=== PATIENT | male | born 1980 | race Caucasian/White ===

== ENCOUNTER 2023-06-15 11:10 | Outpatient (OUT) | payer BC, SELFPAY ==
--- NOTE | 2023-06-15 11:25 | XR_ITS ---
The [address] [address] Patient Name: JOCE MCKNIGHT MRN: [id number] date: 1980 Sex: M Assigned Patient Location: RAD Current Patient Location: RAD Accession/Order Number: [id number] Exam Date: 06/15/2023 11:30 Report Date: 06/15/2023 14:28 At the request of: CHAUNCEY GRIGGS Procedure: XR chest 2V EXAM: XR chest 2V HISTORY: Encounter For General Adult Examination Z00.00 COMPARISON: None. TECHNIQUE: Upright PA and lateral chest x-ray FINDINGS: The heart is not enlarged and the vasculature is not distended. No acute infiltrate, effusion or pneumothorax is identified. The osseous structures are grossly intact. Arm positioning limits the study. XR/XR chest 2V IMPRESSION: No acute infiltrate or evidence of cardiac decompensation. Direct comparison with a previous study may be helpful in confirming the chronicity is findings. The patient had CT scan of the chest performed 11/05/2021 which reported scattered small pulmonary nodules, which are not visualized in the current study. Electronically authenticated by: YOMI OLSEN Date: 06/15/2023 14:28
== END 2023-06-15 11:11 | disposition home or self-care (01) ==
PROVIDERS: PCP Family Medicine; Visit Provider Family Medicine
DX: Z00.00 Encounter for general adult medical examination without abnormal findings (principal)
CPT/HCPCS: 71046

== ENCOUNTER 2023-06-16 09:13 | Outpatient (OUT) | payer BC, SELFPAY ==
[2023-06-16 09:33] LABS: Basophils Percent Auto 0.5 % (0.2-2.0); Eosinophils Absolute Auto 0.2 10^3/uL (0.0-0.7); Eosinophils Percent Auto 2.8 % (0.9-7.0); Hematocrit 49.1 % (42.0-54.0); Hemoglobin 16.4 g/dL (14.0-18.0); Immature Granulocytes Abs Auto 0.02 10^3/uL (0.00-0.03); Immature Granulocytes Pct Auto 0.3 % (0.0-0.5); Lymphocytes Percent Auto 32.7 % (20.5-60.0); Mean Corpuscular HGB Conc 33.4 g/dL (29.9-35.2); Mean Corpuscular Hemoglobin 30.5 pg (25.9-34.0); Mean Corpuscular Volume 91.4 fL (80.0-94.0); Mean Platelet Volume 10.6 fL (9.5-13.5); Monocytes Absolute Auto 0.5 10^3/uL (0.3-0.8); Monocytes Percent Auto 8.4 % (1.7-12.0); Neutrophils Absolute Auto 3.3 10^3/uL (1.4-6.5); Neutrophils Percent Auto 55.3 % (43.0-75.0); Platelet Count 197 10^3/uL (150-450); Red Blood Count 5.37 10^6/uL (4.70-6.10); Red Cell Distribution Width 12.3 % (11.0-15.0); White Blood Count 6.1 10^3/uL (4.0-11.0)
[2023-06-16 10:10] LABS: Alanine Aminotransferase 41 U/L (16-63); Albumin Globulin Ratio 1.4; Albumin Level 3.9 g/dL (3.4-5.0); Alkaline Phosphatase 94 U/L (46-116); Anion Gap 10.5; Aspartate Amino Transferase 20 U/L (15-37); BUN Creatinine Ratio 16.1; Bilirubin Total 0.4 mg/dL (0.2-1.0); Calcium 8.8 mg/dL (8.5-10.1); Carbon Dioxide 28.1 mmol/L (21.0-32.0); Chloride 106 mmol/L (98-107); Chol HDL Ratio 4.2; Cholesterol 176 mg/dL (<=200); Estimated GFR (African America >60 (>=60); Estimated GFR (Non-African Ame >60 (>=60); Globulin 2.8 g/dL; Glucose 95 mg/dL (74-106); HDL Cholesterol 42 mg/dL (40-60); LDL Cholesterol Calculated 122.4 mg/dL; Potassium 4.6 mmol/L (3.5-5.1); Sodium 140 mmol/L (136-145); Thyroid Stimulating Hormone 1.475 uIU/mL (0.358-3.740); Total Protein 6.7 g/dL (6.4-8.2); Triglycerides 58 mg/dL (<=150); VLDL CHOLESTEROL 11.6 mg/dL
[2023-06-16 10:13] LABS: Estimated Average Glucose 105 mg/dL; Glycohemoglobin A1C 5.3 % (4.5-6.2)
[2023-06-16 10:51] LABS: Free T4 0.88 ng/dL (0.76-1.46)
[2023-06-16 11:00] LABS: Prostate Specific Antigen Scrn 0.75 ng/mL (<=4.00)
[2023-06-17 11:08] LABS: Insulin 9.8 uIU/mL (2.6-24.9)
== END 2023-06-16 09:14 | disposition home or self-care (01) ==
LOC: LAB 09:13
PROVIDERS: PCP Family Medicine; Visit Provider Family Medicine
DX: Z00.00 Encounter for general adult medical examination without abnormal findings (principal); R73.09 Other abnormal glucose; E78.5 Hyperlipidemia, unspecified; Z12.5 Encounter for screening for malignant neoplasm of prostate; Z12.12 Encounter for screening for malignant neoplasm of rectum
CPT/HCPCS: 36415; 80053; 80061; 83036; 83525; 84436; 84439; 84443; 85025; G0103

== ENCOUNTER 2023-07-18 15:54 | Outpatient (REF) | payer BC, SELFPAY ==
--- OUTSIDE RECORDS SUMMARY | 2023-07-18 16:05 | XMS_ITS | CCD ---
Author Name Unknown Address [address] [place] [address] Organization [facility] Care Team Providers Care Retail Financial Analyst Name Role Phone SAMEER MENDOZA Unavailable Unavailable CHAUNCEY HUDDLESTON Unavailable Unavailable SAMEER MENDOZA Unavailable Unavailable SAMEER MENDOZA Unavailable Unavailable AUBREE MADRIGAL Attending Unavailable WI Procedure Practitioner Unavailab AUBREE Pond Surgeon Unavailable MEDHAT MADRIGALSEZHENG Lane Admitting Unavailable CHAUNCEY HUDDLESTON Primary Care Unavailable CHAUNCEY HUDDLESTON Referring Unavailable JOE WATT Surgeon Unavailable WI Procedure Practitioner Unavailab DR CHAUNCEY Hernandez Attending Unavailable DR CHAUNCEY HUDDLESTON Consulting Unavailable DR CHAUNCEY HUDDLESTON Primary Care Unavailable DR CHAUNCEY HUDDLESTON Admitting Unavailable LEONARDO, DR SULMA Pedraza Consulting Unavailable AUBREE MADRIGAL Attending Unavailable AUBREE MADRIGAL Attending Unavailable ERIN OLIVA Attending Unavailable Allergies Allergy Classification Reported Allergen(s) Allergy Type Date of Onset Reaction(s) Facility (1 source) Milk; Translations: [MILK] Propensity to adverse reactions to drug (disorder) 8 [facility] Repository Problems Problem Classification Problem Date Documented Date Episodic/Chronic Other lower respiratory disease (4 sources) Other disorders of lung; Translations: [OTHER DISORDERS OF LUNG] Onset: 11-05-2021 Episodic Spondylosis; intervertebral disc disorders; other back problems (2 sources) Other intervertebral disc degeneration, lumbar region; Translations: [Other intervertebral disc degeneration, lumbar region] Onset: 07-28-2022 Chronic Sprains and strains (1 source) Strain of unspecified muscle, fascia and tendon at shoulder and upper arm level, right arm, initial encounter; Translations: [Strain of unspecified muscle, fascia and tendon at shoulder and upper arm level, right arm, initial encounter] Onset: 07-06-2023 Episodic Results Test Name Value Interpretation Reference Range Facility XR ELBOW RIGHT (MIN 3 VIEWS) on 07-06-2023 XR ELBOW RIGHT (MIN 3 VIEWS) CLINICAL HISTORY: Right elbow pain. RIGHT ELBOW 3 VIEWS: No fracture, malalignment, significant arthritis or other acute bony abnormality is seen. No elbow joint effusion seen. IMPRESSION: Normal exam. Interpreted by: Mason Agarwal MD Signed by: Mason Agarwal MD 07/06/23 Final result Normal [facility] Follow-Upon 08-25-2022 Follow-Up [id number] UlicesAndoh ew 1980 M Date Provider Department Center 08/25/2022 [id number], AUBREE [facility] No family history on file Level of Service:61479 [place] OFFICE/OUTPATIENT ESTABLISHED LOW MDM 20-[address] [facility] Office Visiton 07-28-2022 Follow-up visit [id number] Escobar Elena ew 1980 M Date Provider Department Center 07/28/2022 [id number], AUBREE [facility] No family history on file Level of Service:33088 [place] OFFICE/OUTPATIENT NEW MODERATE MDM 45-[address] [facility] CT CHEST W CONon 11-06-2021 CT CHEST W CON EXAMINATION: CT CHES T W CON HISTORY: Disorder of lung follow-up lung nodules COMPARISON: 10/30/20, 12/31/2019 TECHNIQUE: Multi-planar CT images were created with IV contrast. Axial, Coronal, and Sagittal images. Dose reduction techniques were achieved by using automated exposure control and/or adjustment of mA and/or kV according to patient size and/or use of iterative reconstruction technique. FINDINGS: LUNGS: Scattered pulmonary nodules the largest cluster of pulmonary nodules is identified in the left lower lobe with the largest single nodule measuring 5.6 mm on axial image 57. These nodules are stable in number and size from the prior exam. No new pulmonary nodule or mass is identified. Minimal dependent atelectasis. PLEURA: No mass, effusion, or pneumothorax. VASCULATURE: No abnormality. JOSE: Single enlarged left hilar lymph node calcifications measuring 1.6 cm axial image 49, stable. No new pathologic adenopathy MEDIASTINUM: Small amount of soft tissue attenuation in the anterior mediastinum, residual thymic tissue is favored CARDIAC: No enlargement, pericardial thickening, or significant calcification. AORTA: No aneurysm or dissection. CHEST WALL: No mass or axillary adenopathy. BONES: Table chronic left scapular fracture with incomplete union LIMITED ABDOMEN: No suspicious findings. Limited images of the upper abdomen. OTHER: Negative. IMPRESSION: Stable scattered pulmonary nodules. Given the stability over the course of 2 years likely benign Electronically authenticated by: SULMA PATTERSON Date: 2021-11-06 10:44 Normal [facility] LUMBAR SPINE 2 OR 3 [facility] LUMBAR SPINE [address] [facility] Department of Radiology [address] [place] [id number] ====== Patient Name: JOCE ELENA : 1980 Sex: M Age: Race: White Pt. Location: OUTP Patient Status: O Ordered Date: 05/11/2020 7:15:00 AM Completed Date: 05/11/2020 09:37 AM Requesting Provider: AUBREE MADRIGAL Attending Provider: AUBREE MADRIGAL Report Copy To: Signs & Symptoms: Left L4-5 Microdiscectomy with History: Comments: Left L4-5 Microdiscectomy with Exam: LUMBAR SPINE 2 OR 3 S ====== LUMBAR SPINE 2 OR 3 S 05/11/2020 9:37 AM CLINICAL INDICATIONS: Left L4-5 Microdiscectomy with TECHNOLOGIST COMMENTS: Intra op left L4-5 Microdiscectomy with , 8 sec of fluoro used QUESTION FOR RADIOLOGIST: Left L4-5 Microdiscectomy with PROTOCOL: AP, Lateral and L5-S1 spot film was obtained. COMPARISON: 04/15/2020 IMPRESSION: Retractor posterior to L4 is appreciated. Probe projects into the L4-5 disc space. Fluoroscopy time is 8.8 seconds. 4 images are cemented for review. Please refer any questions or concerns related to the procedure to the performing service Electronically signed: Carmen Rivas. Transcribed by: [email or web address], User Resident: Electronically Signed by: CARMEN RIVAS @ 05/11/2020 01:[address] [facility] Comment on above: Order Comment: Left L4-5 Microdiscectomy with Operative Reporton 0 Operative Report MR#: [id number] [facility] Pt. Name: Joce Elena Room #: 0C Discharge Date: Birthdate: 1980 OPERATIVE REPORT DATE OF SURGERY: 05/11/2020 SURGEON: Aubree Madrigal M.D. COMPUTER SYSTEMS DESIGN ANALYST:Michael Kline M.D. 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 ANESTHESIA: General endotracheal anesthesia prone position on Catalino table. SURGICAL PROCEDURE: 1. L4-5 left laminotomy and microdiskectomy (46371). 2. Use of intraoperative microscope (03272). POSTOPERATIVE DIAGNOSES: L4-5 disk prolapse with left side L5 radiculopathy (ICD 10M99.53, M54.16). ESTIMATED BLOOD LOSS: 50 mL. FLUIDS GIVEN: 1200 mL. COMPLICATIONS: None. COUNTS: Needle, sponge, and instrument correct at the end of the surgical procedure. DISPOSITION: The patient was transferred to the recovery room, extubated in stable condition. INDICATIONS: Mr. Elena is 39 year-old patient who was seen in the clinic with a chief complaint of radicular pain in left lower extremity in the distribution of the L5 nerve root dermatome. MRI scan has confirmed L4-5 posterolateral disk prolapse, compressing left traversing L5 nerve root. Due to severity of symptoms affecting daily activities and failure of conservative treatments, including physical therapy, modification of activities, and multiple spine injections, the patient was keen on the on the above-mentioned surgical procedure We explained to the patient the risks and benefits of the above-mentioned surgical procedure, which includes, but not limited to, intraoperative complications from anesthesia, including , intraoperative bleeding that may require blood transfusion, intraabdominal organs that may require exploration and repair. Postoperative complications, include but not limited to, blindness, infection, DVT/PE, incomplete relief of symptoms, recurrence of symptoms, and requirement of further surgery at the same or adjacent segment. The patient fully understands the risks and benefits of the above-mentioned surgical procedure and signed the consent for surgery, as well as blood transfusion. The patient had been cleared for surgery by her family doctor and also has been seen in preoperative clinic at the [facility]. PROCEDURE: The patient was brought to the operating room today, positively identified, received a smooth general endotracheal intubation and received IV antibiotic for surgical prophylaxis. Thigh-high Gerard stockings, as well as sequential compression devices used for DVT prophylaxis. The patient was then rolled into a Philip frame on a flat Catalino table. The Philip frame was elevated, and the patient was placed in reverse Trendelenburg position. Care was taken to ensure all bony prominences were carefully padded. The C-arm was then brought into AP and lateral position and marked level of skin incision centered over the L4-5 disk space. The skin was then prepped and draped in the usual manner. The intended area of skin incision was then infiltrated with 10 mL of 0.5 Marcaine with epinephrine. A midline linked skin incision centered over L4-5 disk space was performed. The subcutaneous tissue was incised in line of the skin incision. A left -sided sub-periosteal exposure was then performed exposing the left L4-5 interlaminar space. After confirmation of correct level of surgery with fluoroscopy, a small laminotomy including the caudal aspect of the L4 lamina, as well as cephalad aspect of L5 lamina were performed using the high-speed Midas Michael, as well as #3 Kerrison rongeur. At this stage, the surgical microscope was then brought into the surgical field, and the plane between the epidural fat and the ligament flavum was identified and ligament flavum was excised. The L5 nerve root was identified and was noted to be quite swollen and inflamed. The nerve root was then retracted medially with nerve root retractor. A large underlying disk herniation was identified. Bipolar electrocautery was then used to coagulate the epidural vessels. Annulotomy was then performed with a #15 blade. This resulted into a large disk fragment coming out through the annulotomy and was removed using a pituitary rongeur. Small additional free disk fragments were identified and removed. A down-biting curette was then used to dissect slightly more medially and slightly more laterally, and any additional free disk fragments were removed. The disk space was then irrigated with normal saline and Bacitracin and any additional free disk fragment were removed. At this point, the foot was allowed to return to its iqugmiut position and was noted to be completely free of any compression or underlying tension and was easily mobile. A Rashaad elevator was then used to palpate along the anterior aspect of the L5 nerve root, as well as the dura with no additional obstruction or compression noted. Final image intensifier was then performed to confirm correct level of surgery before closure. With bone dry hemostasis and no CSF leak, we proceeded with closure. #0 Vicryl was used for closure of the deep fascia and muscle. #2-0 Vicryl used for closure of subcutaneous tissue. #3-0 Biosyn used for subcuticular closure. Octylseal was applied to the skin. The patient was then gently rolled into a bed and was extubated and returned to the recovery room in stable condition. The patient tolerated the procedure well. There was no immediate complication. I was present for the entire surgical procedure. POSTOPERATIVE PLAN: The patient will be going home later today and will be instructed to avoid prolonged sitting more than 1/2 hour at a time, as well as heavy lifting. Follow-up in the clinic in 2 weeks. @ Electronically Signed by: Aubree Madrigal M.D. 05/11/2020 09:36 A __ Aubree Madrigal M.D. Date Dict: 05/11/2020/09:33 Renny/Aubree Madrigal M.D. Date Trans: 05/11/2020 09:33 A/ MIHAELA_JN:[id number] cc: Chauncey Huddleston M.D. [address] [place] [address] [facility] POC GLUCOSE LABon 05-11-2020 Glucose [Mass/Vol] 90 mg/dL Normal 70-[address] [facility] Comment on above: Performed By: #### [id number] #### [facility] [address] [facility]. [address] *SARS-CoV-2 COVID-19on 05-08 [id number] Not Detected Normal Not Detected [facility] Comment on above: Order Comment: The Aptima SARS-CoV-2 ass ay is a nucleic acid amplification test intended for the qualitative detection of RNA from SARS-CoV-2 isolated and purified from nasopharyngeal (MANGLE PRESS CATCHER),oropharyngeal (OP), nasal swab, sputum, and bronchoalveolar lavage (BAL) specimens from patients with signs and symptoms of infection who are suspected of COVID-19. Results are for the identification of SARS-CoV-2 RNA. The SARS-CoV-2 RNA is generally detectable during the acute phase of infection. The Aptima SARS-CoV-2 Assay on the [employer] and [place] [employer] system is intended for use by laboratory personnel specifically instructed and trained in the operation of the [place] and [place] [employer] system. The Aptima SARS-CoV-2 assay is only for use under the Food and Drug Administration Emergency Use Authorization. Testing is limited to laboratories certified under the Clinical Laboratory Improvement Amendments of 1988 (CLIA), 42 U.S.C. ???263a, to perform high complexity tests. Not Detected: Not detected does not preclude SARS-CoV-2 infection and should not be used as the sole basis for patient management decisions. Not detected results must be combined with clinical observations, patient history, and epidemiological information. Performed By: #### 3 [id number] #### [facility] [address] *MRSA/MSSA CULTUREon 020 *MRSA/MSSA CULTURE Clinical Report: (D) Specimen: NASAL SWAB Collected: 05/06/2020 11:34 Status: Final Last Updated: 05/07/2020 08:37 ISO (Final) No Methicillin Resistant Staphylococcus aureus Isolated (MRSA) ISO (Final) No Methicillin Sensitive Staphylococcus aureus Isolated (MSSA) Normal [facility] Comment on above: Performed By: #### [id number] ####[facility] APTTon 05-06-2020 aPTT Coag (Bld) [Time] 31.7 s Normal 25.0-35.[address] [facility] Comment on above: Result Comment: ALL RESULTS MUST BE INTE RPRETED WITH RESPECT TO BLOOD DRAWING ARTIFACT OR DILUTION ERROR OF ANTICOAGULANT AT THE TIME OF SAMPLING. THE APTT SHOULD NOT BE USED TO MONITOR UNFRACTIONATED HEPARIN THERAPY, THIS LABORATORY NO LONGER HAS AN ESTABLISHED THERAPEUTIC RANGE BASED ON THE APTT. IT IS RECOMMENDED THAT THE UFH - HEPARIN ASSAY (ANTI-XA ACTIVITY) BE USED FOR THIS PURPOSE. Performed By: #### 5 7307, 90068 #### [facility] [address] BASIC METABOLIC PANELon 11 Calcium [Mass/Vol] 9.3 mg/dL Normal 8.6-10.[address] [facility] Comment on above: Performed By: #### 94414 #### [facility] [address] [place] [address], [facility] Chloride [Moles/Vol] 107 mmol/L Normal 98-[address] [facility] Comment on above: Performed By: #### 95066 #### [facility] [address] [place] [address], [facility] CO2 [Moles/Vol] 27 mmol/L Normal 21-[address] [facility] Comment on above: Performed By: #### 00746 #### [facility] [address] [place] [address], [facility] Creatinine [Mass/Vol] 0.84 mg/dL Normal 0.70-1.[address] [facility] Comment on above: Performed By: #### 00292 #### [facility] [address] [place] [address], [facility] GFR/1.73 sq M predicted among blacks MDRD (S/P/Bld) [Vol rate/Area] mL/min/{1.73_m2} Normal >[address] [facility] Comment on above: Performed By: #### 78421 #### [facility] [address] [place] [address], [facility] GFR/1.73 sq M predicted among non-blacks MDRD (S/P/Bld) [Vol rate/Area] mL/min/{1.73_m2} Normal >[address] [facility] Comment on above: Performed By: #### 82488 #### [facility] [address] [place] [address], [facility] Glucose [Mass/Vol] 90 mg/dL Normal 70-[address] [facility] Comment on above: Performed By: #### 90525 #### [facility] [address] Potassium [Moles/Vol] 4.0 mmol/L Normal 3.5-5.[address] [facility] Comment on above: Performed By: #### 56846 #### [facility] [address] [place] [address], [facility] Sodium [Moles/Vol] 140 mmol/L Normal 136-[address] [facility] Comment on above: Performed By: #### 80880 #### [facility] [address] [place] [address], [facility] Urea nitrogen [Mass/Vol] 14 mg/dL Normal 7-[address] [facility] Comment on above: Performed By: #### 30126 #### [facility] [address] [place] [address], [facility] CBC W/DIFFon 05-06-2020 ABS BASOPHILS 0.0 10*3/uL Normal 0.0-0.[address] [facility] Comment on above: Performed By: #### 83884 ####[facility] ABS IMM GRANS 0.0 10*3/uL Normal 0.0-0.[address] [facility] Comment on above: Performed By: #### 34931 ####[facility] ABS NEUTROPHILS 5.1 10*3/uL Normal 1.6-7.[address] [facility] Comment on above: Performed By: #### 28037 ####[place] [address] [address] Basophils/100 WBC (Bld) 0.5 % Normal 0.0-1.[address] [facility] Comment on above: Performed By: #### 53837 ####[address] Eosinophils (Bld) [#/Vol] 0.1 10*3/uL Normal 0.0-0.[address] [facility] Comment on above: Performed By: #### 12531 ####[place] [address] Eosinophils/100 WBC (Bld) 1.4 % Normal 0.0-6.[address] [facility] Comment on above: Performed By: #### 25359 ####[place] [address] Erythrocyte distribution width (RBC) [Ratio] 12.1 % Normal 11.5-15.[address] [facility] Comment on above: Performed By: #### 54054 ####[address] Hematocrit (Bld) [Volume fraction] 46.6 % Normal 39.0-50.[address] [facility] Comment on above: Performed By: #### 31251 ####[address] [place] [address], [place] Hemoglobin (Bld) [Mass/Vol] 16.0 g/dL Normal 13.0-17.[address] [facility] Comment on above: Performed By: #### 51947 ####[address] IMMATURE GRANS 0.3 % Normal 0.0-1.[address] [facility] Comment on above: Performed By: #### 35120 ####[address] Lymphocytes (Bld) [#/Vol] 1.7 10*3/uL Normal 1.2-4.[address] [facility] Comment on above: Performed By: #### 80428 ####[address] Lymphocytes/100 WBC (Bld) 22.5 % Normal 20.0-45.[address] [facility] Comment on above: Performed By: #### 50885 ####[address] MCH (RBC) [Entitic mass] 31.1 pg Normal 27.0-33.[address] [facility] Comment on above: Performed By: #### 87470 ####[address] MCHC (RBC) [Mass/Vol] 34.3 g/dL Normal 32.0-35.[address] [facility] Comment on above: Performed By: #### 47972 ####[address] MCV (RBC) [Entitic vol] 90.5 fL Normal 82.0-98.[address] [facility] Comment on above: Performed By: #### 76116 ####[place] [address], [facility] Monocytes (Bld) [#/Vol] 0.7 10*3/uL Normal 0.1-1.[address] [facility] Comment on above: Performed By: #### 55262 ####[facility] [place] [address], [facility] MONOS 8.7 % Normal 5.0-12.[address] [facility] Comment on above: Performed By: #### 21818 ####[facility] [facility] [place] [address], [facility] Neutrophils/100 WBC (Bld) 66.6 % Normal 40.0-72.[address] [facility] Comment on above: Performed By: #### 43146 ####[facility] [facility] [place] [address], [facility] Nucleated RBC/100 WBC (Bld) [Ratio] 0 % Normal 0-[address] [facility] Comment on above: Performed By: #### 63839 ####[facility] [facility] [place] [address], [facility] PLAT CNT 188 10*3/uL Normal 150-[address] [facility] Comment on above: Performed By: #### 42538 ####[facility] [facility] [place] [address], [facility] RBC (Bld) [#/Vol] 5.15 10*6/uL Normal 4.20-5.[address] [facility] Comment on above: Performed By: #### 96244 ####[facility] [facility] [place] [address], [facility] WBC (Bld) [#/Vol] 7.59 10*3/uL Normal 4.00-10.[address] [facility] Comment on above: Performed By: #### 37131 ####[facility] [facility] [place] [address], [facility] PROTHROMBIN TIMEon 0 INR Coag (PPP) [Relative time] 0.96 {INR} Normal 0.91-1.16 [facility] Comment on above: Result Comment: [facility] RECOMMENDED INR FO R WARFARIN THERAPY -- ------- CONDITION INR PROPHYLAXIS OF VENOUS THROMBOSIS 2-3 (HIGH-RISK SURGERY) TREATMENT OF VENOUS THROMBOSIS 2-3 TREATMENT OF PULMONARY EMBOLISM 2-3 PREVENTION OF SYSTEMIC EMBOLISM: 2-3 ACUTE MYOCARDIAL INFARCTION TISSUE HEART VALVES VALVULAR HEART DISEASE ATRIAL FIBRILLATION RECURRENT SYSTEMIC EMBOLISM MECHANICAL HEART VALVE 2.5-3.5 FROM: ORAL ANTICOAGULANTS. MECHANISM OF ACTION, CLINICAL EFFECTIVENESS, AND OPTIMAL THERAPEUTIC RANGE. CHEST 1995;108:231S-246S. Performed By: #### 5 7307, 81708 #### [facility] [address] [place] [address], [facility] PT Coag (PPP) [Time] 12.8 s Normal 12.3-14.8 [facility] Comment on above: Result Comment: ALL RESULTS MUST BE INTE RPRETED WITH RESPECT TO BLOOD DRAWING ARTIFACT OR DILUTION ERROR OF ANTICOAGULANT AT THE TIME OF SAMPLING. Performed By: #### 5 7307, 63920 #### [facility] [address] [place] [address], [facility] TYPE AND CROSSMATCHon 2019 ABO INTERPRETATION O Normal [facility] Comment on above: Performed By: #### 21809 #### [facility] [address] [place] [address], [place] RH INTERPRETATION Positive Normal [facility] Comment on above: Performed By: #### 41251 #### [facility] [address] [place] [address], [facility] URINALYSISon 05-06-2020 Appearance (U) CLEAR Normal CLEAR [facility] Comment on above: Performed By: #### 60651 #### [facility] [address] [place] [address], [place] Bilirubin [Mass/Vol] Negative Normal NEGATIVE [facility] Comment on above: Performed By: #### 34772 #### [facility] [address] [place] [address], [place] BLOOD Negative Normal NEGATIVE [facility] Comment on above: Performed By: #### 85675 #### [facility] [address] [place] [address], [place] Color (U) YELLOW Normal YELLOW [facility] Comment on above: Performed By: #### 01396 #### [facility] [address] [place] [address], [place] Glucose [Mass/Vol] Negative Normal NEGATIVE [facility] Comment on above: Performed By: #### 68138 #### [facility] [address] [place] [address], [place] KETONE Negative Normal NEGATIVE [facility] Comment on above: Performed By: #### 55151 #### [facility] [address] [place] [address], [place] LEUK ALECIA Negative Normal NEGATIVE [facility] Comment on above: Performed By: #### 12809 #### [facility] [address] [place] [address], [place] MICRO NOT DONE Normal [facility] Comment on above: Result Comment: Microscopics not perform ed on urines with negative chemical reactions unless requested in original order Performed By: #### 1 0008 #### [facility] [facility] [address] [place] [address], [place] Nitrite Ql (U) Negative Normal NEGATIVE [facility] Comment on above: Performed By: #### [id number] #### [facility] 3000 [facility]. [address] pH (Bld) 6.0 Normal 5.0-8.[address] [facility] Comment on above: Performed By: #### [id number] #### [facility] 3000 [facility]. [address] Protein (U) [Mass/Vol] Negative Normal NEGATIVE [facility] Comment on above: Performed By: #### [id number] #### [facility] [address] SPEC GRAV 1.008 Low 1.015-1.[address] [facility] Comment on above: Performed By: #### [id number] #### [facility] [address] PT - Assessmentson 0 PT - Assessments [id number]#1.00CD:127 Normal [facility] LUMBAR SPINE 4 OR 5 [facility] LUMBAR SPINE 4 OR 5 [facility] Department of Radiology [address] [place] [id number] ====== Patient Name: JOCE ELENA : 1980 Sex: M Age: Race: White Pt. Location: Patient Status: D Ordered Date: 04/15/2020 3:05:00 PM Completed Date: 04/15/2020 03:12 PM Requesting Provider: AUBREE MADRIGAL Attending Provider: Report Copy To: Signs & Symptoms: M54.16 Radiculopathy, lumbar region I10 History: Lillian Comments: Views (X-RAY, LUMBAR SPINE): AP, Lateral, L5-S1 Spot, Flexion, Extension , Weight Bearing?: Y Exam: LUMBAR SPINE 4 OR 5 VWS ====== LUMBAR SPINE 4 OR 5 VWS 04/15/2020 3:12 PM CLINICAL INDICATIONS: M54.16 Radiculopathy, lumbar region I10 TECHNOLOGIST COMMENTS: low back pain and into legs QUESTION FOR RADIOLOGIST: Views (X-RAY, LUMBAR SPINE): AP, Lateral, L5-S1 Spot, Flexion, Extension , Weight Bearing?: Y PROTOCOL: AP,Lateral,L5-S1 spot,Flexion and Extension views were obtained. COMPARISON: None. FINDINGS: There are 5 nonrib-bearing lumbar-type vertebrae present. Mild disc space narrowing L4-5 and L5-S1. Mild lower level posterior element degeneration. Lateral view demonstrates preservation of vertebral body height. No spondylolisthesis. There is no evidence of abnormal vertebral translation between flexion and extension. Limited range of motion. IMPRESSION: * Age compatible degenerative change. No acute findings or evidence of vertebral instability. Electronically signed: Matt Orozco. Transcribed by: [id number], User Resident: MATT OROZCO Electronically Signed by: MATT OROZCO @ 04/16/2020 12:50 PM I personally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
[2023-07-18 22:19] LABS: Occult Blood Negative
== END 2023-07-18 15:55 | disposition home or self-care (01) ==
LOC: LAB 15:54
PROVIDERS: PCP Family Medicine; Visit Provider Family Medicine
DX: Z00.00 Encounter for general adult medical examination without abnormal findings (principal); Z12.5 Encounter for screening for malignant neoplasm of prostate; Z12.12 Encounter for screening for malignant neoplasm of rectum
CPT/HCPCS: G0328

== ENCOUNTER 2023-07-31 10:23 | Outpatient (REF) | payer BC, SELFPAY ==
--- OUTSIDE RECORDS SUMMARY | 2023-07-31 10:27 | XMS_ITS | CCD ---
Author Name Unknown Address [address] [facility] [place] [address] [place] [address] Organization [facility] Care Team Providers Care Fuel Management Handler Name Role Phone SAMEER MENDOZA Unavailable Unavailable CHAUNCEY HUDDLESTON Unavailable Unavailable SAMEER MENDOZA Unavailable Unavailable SAMEER MENDOZA Unavailable Unavailable AUBREE MADRIGAL Attending Unavailable ID Procedure Practitioner Unavailab AUBREE Pond Surgeon Unavailable MEDHAT MADRIGALSEZHENG Lane Admitting Unavailable CHAUNCEY HUDDLESTON Primary Care Unavailable CHAUNCEY HUDDLESTON Referring Unavailable JOE WATT Surgeon Unavailable ID Procedure Practitioner Unavailab DR CHAUNCEY Hernandez Attending [...] to adverse reactions to drug (disorder) 8 [facility] Repository Problems Problem Classification Problem Date Documented [...] Mason Agarwal MD 07/06/23 Final result Normal [facility] Follow-Upon 08-25-2022 Follow-Up [id number] UlicesAndoh ew 1980 M Date Provider Department Center 08/25/2022 [id number], AUBREE [facility] No family history on file Level of Service:59180 ID OFFICE/OUTPATIENT ESTABLISHED LOW MDM 20-29 MIN Normal [facility] Office Visiton 07-28-2022 Follow-up visit [id number] Escobar Elena ew 1980 M Date Provider Department Center 07/28/2022 [id number], AUBREE [facility] No family history on file Level of Service:28418 ID OFFICE/OUTPATIENT NEW MODERATE MDM 45-59 MINUTES Normal [facility] CT CHEST W CONon 11-06-2021 CT CHEST [...] by: SULMA PATTERSON Date: 2021-11-06 10:44 Normal [facility] LUMBAR SPINE 2 OR 3 [facility] LUMBAR SPINE 2 OR 3 S [facility] Department of Radiology [address] [place] [id number] ====== Patient Name: JOCE ELENA : [...] service Electronically signed: Carmen Rivas. Transcribed by: [email or web address], User Resident: Electronically Signed by: CARMEN RIVAS @ 05/11/2020 01:50 PM Normal [facility] Comment on above: Order Comment: Left L4-5 Microdiscectomy with Operative Reporton 0 Operative Report MR#: [id number] S [facility] Pt. Name: Joce Elena Room #: 0C Discharge Date: Birthdate: 1980 OPERATIVE REPORT DATE OF SURGERY: 05/11/2020 SURGEON: Aubree Madrigal M.D. WEB MASTER:Michael Kline M.D. 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 ANESTHESIA: General endotracheal anesthesia prone position on [place] table. SURGICAL PROCEDURE: 1. L4-5 left laminotomy and microdiskectomy (88708). 2. Use of intraoperative microscope (75315). POSTOPERATIVE DIAGNOSES: L4-5 disk prolapse with left [...] been seen in preoperative clinic at the [facility]. PROCEDURE: The patient was brought to the [...] foot was allowed to return to its [place] position and was noted to be completely [...] Madrigal M.D. Date Trans: 05/11/2020 09:33 A/ MIHAELA_JN:[id number] cc: Chauncey Huddleston M.D. [address] [place] [address] Normal [facility] POC GLUCOSE LABon 05-11-2020 Glucose [Mass/Vol] 90 mg/dL Normal 70-100 [facility] Comment on above: Performed By: #### 77876 #### [facility] [address] [facility]. [address] *SARS-CoV-2 COVID-19on 05-08 AUMW-ECOSV-56 Not Detected Normal Not Detected [facility] Comment on above: Order Comment: The Aptima SARS-CoV-2 ass ay is a nucleic acid amplification test intended for the qualitative detection of RNA from SARS-CoV-2 isolated and purified from nasopharyngeal (METAL TRIM ERECTOR),oropharyngeal (OP), nasal swab, sputum, and bronchoalveolar lavage (BAL) specimens from patients with signs and symptoms of infection who are suspected of COVID-19. Results are for the identification of SARS-CoV-2 RNA. The SARS-CoV-2 RNA is generally detectable during the acute phase of infection. The Aptima SARS-CoV-2 Assay on the [employer] and [place] Fusion system is intended for use by laboratory personnel specifically instructed and trained in the operation of the [place] and [place] Fusion system. The Aptima SARS-CoV-2 assay [...] information. Performed By: #### 3 1792 #### [facility] [address] *MRSA/MSSA CULTUREon 020 *MRSA/MSSA CULTURE Clinical Report: (D) Specimen: NASAL SWAB Collected: 05/06/2020 11:34 Status: Final Last Updated: 05/07/2020 08:37 ISO (Final) No Methicillin Resistant Staphylococcus aureus Isolated (MRSA) ISO (Final) No Methicillin Sensitive Staphylococcus aureus Isolated (MSSA) Normal [facility] Comment on above: Performed By: #### 55280 ####[facility] APTTon 05-06-2020 aPTT Coag (Bld) [Time] 31.7 s Normal 25.0-35.0 [facility] Comment on above: Result Comment: ALL RESULTS [...] THIS PURPOSE. Performed By: #### 5 7307, 89086 #### [facility] [address] BASIC METABOLIC PANELon 11 Calcium [Mass/Vol] 9.3 mg/dL Normal 8.6-10.3 [facility] Comment on above: Performed By: #### 96218 #### [facility] [address] [place] [address], [facility] Chloride [Moles/Vol] 107 mmol/L Normal 98-107 [facility] Comment on above: Performed By: #### 07952 #### [facility] [address] [place] [address], [facility] CO2 [Moles/Vol] 27 mmol/L Normal 21-31 [facility] Comment on above: Performed By: #### 53139 #### [facility] [address] [place] [address], [facility] Creatinine [Mass/Vol] 0.84 mg/dL Normal 0.70-1.30 [facility] Comment on above: Performed By: #### 96443 #### [facility] [address] [place] [address], [facility] GFR/1.73 sq M predicted among blacks MDRD (S/P/Bld) [Vol rate/Area] mL/min/{1.73_m2} Normal >60 [facility] Comment on above: Performed By: #### 77765 #### [facility] [address] [place] [address], [facility] GFR/1.73 sq M predicted among non-blacks MDRD (S/P/Bld) [Vol rate/Area] mL/min/{1.73_m2} Normal >60 [facility] Comment on above: Performed By: #### 72850 #### [facility] [address] [place] [address], [facility] Glucose [Mass/Vol] 90 mg/dL Normal 70-100 [facility] Comment on above: Performed By: #### 31753 #### [facility] [address] Potassium [Moles/Vol] 4.0 mmol/L Normal 3.5-5.1 [facility] Comment on above: Performed By: #### 01537 #### [facility] [address] [place] [address], [facility] Sodium [Moles/Vol] 140 mmol/L Normal 136-145 [facility] Comment on above: Performed By: #### 68596 #### [facility] [address] [place] [address], [facility] Urea nitrogen [Mass/Vol] 14 mg/dL Normal 7-25 [facility] Comment on above: Performed By: #### 38776 #### [facility] [address] [place] [address], [facility] CBC W/DIFFon 05-06-2020 ABS BASOPHILS 0.0 10*3/uL Normal 0.0-0.2 [facility] Comment on above: Performed By: #### 05724 ####[facility] ABS IMM GRANS 0.0 10*3/uL Normal 0.0-0.2 [facility] Comment on above: Performed By: #### 61807 ####[facility] ABS NEUTROPHILS 5.1 10*3/uL Normal 1.6-7.6 [facility] Comment on above: Performed By: #### 31100 ####[place] [address] [address] Basophils/100 WBC (Bld) 0.5 % Normal 0.0-1.0 [facility] Comment on above: Performed By: #### 91625 ####[address] Eosinophils (Bld) [#/Vol] 0.1 10*3/uL Normal 0.0-0.5 [facility] Comment on above: Performed By: #### 56413 ####[place] [address] Eosinophils/100 WBC (Bld) 1.4 % Normal 0.0-6.0 [facility] Comment on above: Performed By: #### 81886 ####[place] [address] [address] Erythrocyte distribution width (RBC) [Ratio] 12.1 % Normal 11.5-15.0 [facility] Comment on above: Performed By: #### 79335 ####[address] Hematocrit (Bld) [Volume fraction] 46.6 % Normal 39.0-50.0 [facility] Comment on above: Performed By: #### 40352 ####[address] [place] [address], [place] Hemoglobin (Bld) [Mass/Vol] 16.0 g/dL Normal 13.0-17.0 [facility] Comment on above: Performed By: #### 88614 ####[address] IMMATURE GRANS 0.3 % Normal 0.0-1.0 [facility] Comment on above: Performed By: #### 91697 ####[address] Lymphocytes (Bld) [#/Vol] 1.7 10*3/uL Normal 1.2-4.0 [facility] Comment on above: Performed By: #### 22852 ####[address] Lymphocytes/100 WBC (Bld) 22.5 % Normal 20.0-45.0 [facility] Comment on above: Performed By: #### 91633 ####[address] MCH (RBC) [Entitic mass] 31.1 pg Normal 27.0-33.0 [facility] Comment on above: Performed By: #### 71319 ####[address] MCHC (RBC) [Mass/Vol] 34.3 g/dL Normal 32.0-35.0 [facility] Comment on above: Performed By: #### 75110 ####[address] MCV (RBC) [Entitic vol] 90.5 fL Normal 82.0-98.0 [facility] Comment on above: Performed By: #### 24235 ####[place] [address], [facility] Monocytes (Bld) [#/Vol] 0.7 10*3/uL Normal 0.1-1.0 [facility] Comment on above: Performed By: #### 36353 ####[facility] [place] [address], [facility] MONOS 8.7 % Normal 5.0-12.0 [facility] Comment on above: Performed By: #### 01243 ####[facility] [facility] [place] [address], [facility] Neutrophils/100 WBC (Bld) 66.6 % Normal 40.0-72.0 [facility] Comment on above: Performed By: #### 22940 ####[facility] [facility] [place] [address], [facility] Nucleated RBC/100 WBC (Bld) [Ratio] 0 % Normal 0-0 [facility] Comment on above: Performed By: #### 67941 ####[facility] [facility] [place] [address], [facility] PLAT CNT 188 10*3/uL Normal 150-400 [facility] Comment on above: Performed By: #### 34840 ####[facility] [facility] [place] [address], [facility] RBC (Bld) [#/Vol] 5.15 10*6/uL Normal 4.20-5.70 [facility] Comment on above: Performed By: #### 84732 ####[facility] [facility] [place] [address], [facility] WBC (Bld) [#/Vol] 7.59 10*3/uL Normal 4.00-10.60 [facility] Comment on above: Performed By: #### 47611 ####[facility] [facility] [place] [address], [facility] PROTHROMBIN TIMEon 0 INR Coag (PPP) [Relative time] 0.96 {INR} Normal 0.91-1.16 [facility] Comment on above: Result Comment: [facility] RECOMMENDED INR FO R WARFARIN [...] CHEST 1995;108:231S-246S. Performed By: #### 5 7307, 73956 #### [facility] [address] [place] [address], [facility] PT Coag (PPP) [Time] 12.8 s Normal 12.3-14.8 [facility] Comment on above: Result Comment: ALL RESULTS MUST BE INTE RPRETED WITH RESPECT TO BLOOD DRAWING ARTIFACT OR DILUTION ERROR OF ANTICOAGULANT AT THE TIME OF SAMPLING. Performed By: #### 5 7307, 20521 #### [facility] [address] [place] [address], [facility] TYPE AND CROSSMATCHon 2019 ABO INTERPRETATION O Normal [facility] Comment on above: Performed By: #### 27854 #### [facility] [address] [place] [address], [place] RH INTERPRETATION Positive Normal [facility] Comment on above: Performed By: #### 28954 #### [facility] [address] [place] [address], [facility] URINALYSISon 05-06-2020 Appearance (U) CLEAR Normal CLEAR [facility] Comment on above: Performed By: #### 57015 #### [facility] [address] [place] [address], [place] Bilirubin [Mass/Vol] Negative Normal NEGATIVE [facility] Comment on above: Performed By: #### 82097 #### [facility] [address] [place] [address], [place] BLOOD Negative Normal NEGATIVE [facility] Comment on above: Performed By: #### 40679 #### [facility] [address] [place] [address], [place] Color (U) YELLOW Normal YELLOW [facility] Comment on above: Performed By: #### 94950 #### [facility] [address] [place] [address], [place] Glucose [Mass/Vol] Negative Normal NEGATIVE [facility] Comment on above: Performed By: #### 73755 #### [facility] [address] [place] [address], [place] KETONE Negative Normal NEGATIVE [facility] Comment on above: Performed By: #### 83225 #### [facility] [address] [place] [address], [place] LEUK ALECIA Negative Normal NEGATIVE [facility] Comment on above: Performed By: #### 99920 #### [facility] [address] [place] [address], [place] MICRO NOT DONE Normal [facility] Comment on above: Result Comment: Microscopics not perform ed on urines with negative chemical reactions unless requested in original order Performed By: #### 1 0008 #### [facility] [address] [place] [address], [place] Nitrite Ql (U) Negative Normal NEGATIVE [facility] Comment on above: Performed By: #### 54062 #### [facility] [address] [facility]. [address] pH (Bld) 6.0 Normal 5.0-8.0 [facility] Comment on above: Performed By: #### 13565 #### [facility] [address] [facility]. [address] Protein (U) [Mass/Vol] Negative Normal NEGATIVE [facility] Comment on above: Performed By: #### 84008 #### [facility] [address] SPEC GRAV 1.008 Low 1.015-1.02 0 [facility] Comment on above: Performed By: #### 93196 #### [facility] [address] PT - Assessmentson 0 PT - Assessments [id number]#1.00CD:127 Normal [facility] LUMBAR SPINE 4 OR 5 [facility] LUMBAR SPINE 4 OR 5 [facility] Department of Radiology [address] [place] [address] ====== Patient Name: JOCE ELENA : [...] instability. Electronically signed: Matt Orozco. Transcribed by: [email or web address], User Resident: MATT OROZCO Electronically Signed by: MATT OROZCO @ 04/16/2020 12:50 PM I personally read this/these film(s) with this resident Normal [facility] Comment on above: Order Comment: Views (X-RAY, [...] LISA CALDERA, Hunter Victoria Only if needed [place] [address]- Additional Instructions: Problem List/Past Medical [...] Father. Primary malignant neoplasm of colon: Father. [facility] Comment on above: Result Comment: Electronically Signed By : LISA CALDERA, Hunter HallDate and Time Signed: 04/02/20 17:09 EDT PT - Home Exercise Programon 04-02-2020 PT - Home Exercise Program [id number]#1.00CD:127 [facility] Ambulatory Clinical Summaryo n 03-31-2020 Ambulatory Clinical Summary {[id number]}CD:[id number] [facility] PT - Otheron 03-31-2020 PT - Other [id number]#1.00CD:127 [facility] PT - Home Exercise Programon 03-30-2020 PT - Home Exercise Program [id number]#1.00CD:127 [facility] Pathology Noteon 03-24-2020 Pathology Note [id number]#1.00CD:127 [facility] Coding Summary.on 03-23-2020 Coding Summary. CODING DATE: 020 FINAL [facility] STATUS: PAYOR: Colome ADMIT DX: REASON FOR VISIT DX: M54.5 [...] Garnica CphT Date Saved: 03/23/2020 10:33 am [facility] PT - Orderson 03-23-2020 PT - Orders [id number]#1.00CD:127 Normal [facility] PT - Assessmentson 0 PT - Assessments [id number]#1.00CD:127 Normal [facility] PT - Consentson 03-20-2020 PT - Consents [id number]#1.00CD:127 Normal [facility] PT - Home Exercise Programon 03-20-2020 PT - Home Exercise Program [id number]#1.00CD:127 [facility] Consenton 03-19-2020 Consent [id number]#1.00CD:127 [facility] PT - Orderson 03-19-2020 PT - Orders [id number]#1.00CD:127 [facility] Ambulatory Clinical Summaryo n 03-18-2020 Ambulatory Clinical Summary {[id number]}CD:[id number] [facility] General Surgery Office/Clini c Noteon 03-18-2020 General [...] Primary malignant neoplasm of colon: Father. Normal [facility] Comment on above: Result Comment: Electronically Signed By : LISA CALDERA, Hunter R\.br\Date and Time Signed: 03/18/20 16:23 EDT Facesheeton 03-06-2020 Facesheet [id number]#1.00CD:127 Normal [facility] Physician Referralon 020 Physician Referral [id number]#1.00CD:127 Normal [facility] Physician Referralon 020 Physician Referral [id number]#1.00CD:127 Normal [facility] Provider Letter FTMCon 03-05 Provider Letter [facility] [place] Chauncey [address] [place] [address] Re: JOCE ELENA Date of : 1980 Thank you for your referral of Joce Elena who was seen on consultation on 03/04/2020 for cyst of neck. I have enclosed my consultation notes for your review. Sincerely, Hunter Jain MD General Surgery [facility] Ambulatory Clinical Summaryo n 03-04-2020 Ambulatory Clinical Summary {[id number]}CD:[id number] [facility] General Surgery Office/Clini c Noteon 03-04-2020 General [...] Primary malignant neoplasm of colon: Father. Normal [facility] Comment on above: Result Comment: Electronically Signed By : LISA CALDERA, Hunter Rizvi\Date and Time Signed: 03/04/20 16:13 EDT DUSTINOVon 07-27-2017 CNOV Office Visit (STEFANYSVANE) JOCE ELENA ([id number]) 1980 MDate Time Provider Department07/27/17 3:50 PM SAMEER MENDOZA During your visit today, we recorded the following information about you: Pulse Respiration Blood pressure Weight 72/minute 20/minute 133/83 95.3 kg Height 1.88 Racheal Mendoza MD 07/27/2017 4:35 PM AddendumSPINE SURGERY ESTABLISHEDDATE OF SERVICE: 07/27/2017DATE OF LAST VISIT: 06/30/2017PCP: Chauncey Huddleston, MDREFERRING PROVIDER:Chauncey Huddleston MD[address] [facility] [address]WYFRDSXNVORfwfly J Falter is a 36 year old [...] shapePain Ratio: Right groinDERMATOMAL DISTRIBUTION:Right: L3 and U5ASNTONDLWY STATUS: NO ISSUESSTANDING UPRIGHT: NO ISSUESFUNCTIONAL STATUS: [...] Wt 95.3 kg (210 lb) BMI 26.96 kg/f2RHRGPIL APPEARANCE: Well nourished, well developed, and no [...] THIS VISIT ARE HIGHLIGHTED IN BOLD PRINT.The [facility] MRI scan. June 28, 2017. Congenital canal [...] : 4:01 PM PAGER:Referring Provider: SAMEER MENDOZA [[id number]]Allergies As of Date: 07/27/2017 Noted Allergy ReactionMILK 07/27/2017 6 - DiarrheaDate Reviewed: 07/27/2017Reviewed by: Sameer Mendoza - Fully AssessedReason for Visit: Established Patient [175] Cmt: 4 week f/uPrimary Visit Diagnosis:Lumbar disc herniation with radiculopathy [M51.16] Other Visit Diagnoses:History of rib fracture [Z87.81] Acute right-sided low back pain with right-sided sciatica [M54.41] Smoker [F17.200]Order(s):HOME TRACTION KIT [[id number]] Order #: [id number] as of 07/27/2017 Sig: PANTOPRAZOLE 40 MG [...] (around 09/07/2017).Follow-up and Disposition History RecordedEncounter Number: [id number] Status:Closed by SAMEER MENDOZA MD on 07/27/17 [facility] PROGRESSon 07-27-2017 PROGRESS HNO ID: [id number] thor: Sameer MendozaService: (none)Author Type: PhysicianType: Progress NotesFiled: 07/27/2017 4:35 PMNote Text:SPINE SURGERY ESTABLISHEDDATE OF SERVICE: 07/27/2017DATE OF LAST VISIT: 06/30/2017PCP: Chauncey Huddleston MDREFERRING PROVIDER:Chauncey Huddleston MD[address] [facility] [id number] J Falter is a 36 year old male presenting alone. 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 June 28, 2017. Congenital canal [...] canal at the foraminal zone with right O4tsxonzgtryzwzGntlljbup and treatment options were discussed. Based on [...] 27, 2017 : 4:01 PM PAGER: Normal [facility] HOSP 07-14-2017 HOSP Patient Update (FAMPWE) JOCE ELENA ([id number]) 1980 MDate Time Provider Department07/14/17 SAMEER MENDOZA FAMPWE During your visit today, we recorded the following information about you:Bright Monroe LPN 07/14/2017 9:39 AM SignedPain management notified this office that this patient declined a referral.Allergies As of Date: 07/14/2017(No Known Allergies)Date Reviewed: 06/30/2017Reviewed by: Saemer Mendoza - Fully AssessedPrescriptions as of 07/14/2017 [...] Status:Closed by BRIGHT MONROE LPN on 07/14/[address] [facility] PROGRESSon 07-14-2017 PROGRESS HNO ID: [id number] Author: Bright Monroe LPN Service: (none) Author Type: (none) Type: Progress Notes Filed: 07/14/2017 9:39 AM Note Text: Pain management notified this office that this patient declined a referral. Normal [facility] CNOVon 06-30-2017 CNOV Office Visit (NEUSFT) ELOYJOCE GODWIN ([id number]) 1980 [facility] Time Provider Tweooeawwf09/29/17 10:40 AM SAMEER MENDOZA During your visit today, we recorded the following information about you: Pulse Respiration Blood pressure Weight 75/minute 20/minute 130/80 95.3 kg Height 1.88 Racheal Mendoza MD 06/30/2017 11:59 AM [facility] SURGERY OUTPATIENT CONSULTSERVICE DATE: 06/30/2017PCP: Chauncey Huddleston MDREFERRING PROVIDER:Chauncey Huddleston MD[address] [facility] [address]Ckbvsrq requested for an opinion regarding the evaluation [...] StandingPain Ratio: RIGHT HIPDERMATOMAL DISTRIBUTION:Right: L3 and Y2YLBNBARMCW STATUS: NO ISSUESSTANDING UPRIGHT: NO ISSUESFUNCTIONAL STATUS: [...] Wt 95.3 kg (210 lb) BMI 26.96 kg/o2EKHNWLF APPEARANCE: Well nourished, well developed, and no [...] records reviewed and findings are as followsThe [facility] MRI scan. June 28, 2017. Congenital canal [...] discussed with thepatient or the patient?s personal care support representative.The patient intends to call the office with a decison. Shared decision makingoccurred while obtaining informed consent.1. Consults: Physical Therapy Medical Spine Intervention2. Follow up: Following aboveSIGNATURE: Sameer Mendoza MD PATIENT NAME: Joce ElenaDATE: June 30, 2017 : 11:06 AM PAGER:Sameer Mendoza MD 06/30/2017 11:32 AM SignedLumbar disc herniationSmoking cessationReferring Provider: CHAUNCEY HUDDLESTON [[id number]]Allergies As of Date: 06/30/2017(No Known Allergies)Date Reviewed: 06/30/2017Reviewed by: Sameer Mendoza - Fully AssessedReason for Visit: Consult [173] Cmt: low back painPrimary Visit Diagnosis:Lumbar disc herniation with radiculopathy [M51.16] Other Visit Diagnoses:History of rib fracture [Z87.81] Acute right-sided low back pain with right-sided sciatica [M54.41] Smoker [F17.200]Order(s):CONSULT TO OUTSIDE PHYSICAL THERA [[id number]] Order #: [id number]: 1 CONSULT TO [facility] [[id number]] Order #: [id number]: 1 traMADol (ULTRAM) 50 mg tabletTake 1 [...] (around 07/28/2017).Follow-up and Disposition History RecordedEncounter Number: [id number] Status:Closed by SAMEER MENDOZA MD on 06/30/17 [facility] PROGRESSon 06-30-2017 PROGRESS HNO ID: [id number] thor: Sameer MendozaService: (none)Author Type: PhysicianType: Progress NotesFiled: 06/30/2017 11:59 AMNote Text:SPINE SURGERY OUTPATIENT CONSULTSERVICE DATE: 06/30/2017PCP: Chauncey Huddleston MDREFERRING PROVIDER:Chauncey Huddleston [id number] [facility] [id number] requested for an opinion regarding the evaluation and treatmentof Joce Elena. My final impression and recommendations will becommunicated back to the requesting physician by way of the shared medicalrecord or letter via [place] mail.Corrina Elena is a 36 year old male presenting alone. 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 [facility] Congenital canal [...] 30, 2017 : 11:06 AM PAGER: Normal [facility] OT-MRI L-SPINE WO CON IMPORT on 06-28-2017 OT-MRI L-SPINE WO CON IMPORT Images were obtained outside of [facility] [id number] Normal [facility] OT-XR HIP RT 2-3V W PELVIS I MPORTon 06-13-2017 OT-XR HIP RT 2-3V W PELVIS IMPORT Images were obtained outside of [facility] [id number] Normal [facility] OT-XR L-SPINE MIN 4 VIEWS IM PORTon 06-13-2017 OT-XR L-SPINE MIN 4 VIEWS IMPORT Images were obtained outside of [facility] [id number] Normal [facility] Encounters Encounter Date Encounter Type Care Provider Facility Start: 07-06-2023 End: 07-06-2023 Emergency department patient visit [facility] Start: 08-25-2022 End: 08-25-2022 ambulatory [facility] Start: 07-28-2022 End: 07-28-2022 ambulatory AUBREE ELGAFY [facility] Start: 11-05-2021 End: 11-06-[address] CHAUNCEY HUDDLESTON Facility: Start: 05-11-2020 End: 05-12-2020 Patient encounter procedure AUBREE MADRIGAL Facility:[facility] Start: 07-27-2017 End: 07-27-2017 Ambulatory SAMEER MENDOZA [facility] Start: 06-30-2017 End: 07-04-2017 Ambulatory SAMEER MENDOZA [facility] Procedures Date Procedure Procedure Detail Performing Clinician Start: 05-11-2020 ANESTH SPINE CORD SURGERY JOE WATT Start: 05-11-2020 LOW BACK DISK SURGERY H XOCHITL MADRIGAL Start: 05-06-2020 Antibody screen AUBREE MADRIGAL Comment on above: Performed By: #### [id number] #### [address] Payers Date Payer Category Payer Unknown [id number] 1980 Unknown [id number] 1980 Unknown [id number] 1980 Unknown [id number] 1959 Unknown [id number] Progress note 08-25-2022 Note Date & Type [...] with PT, cyclobenzaprine Follow up 3 months [facility] Progress note 07-28-2022 Note Date & Type [...] PT, ibuprofen, cyclobenzaprine Follow up 6 weeks [facility] Summary Purpose Family History No Family History [...] section and content) DATE CREATED AUTHOR 12/25/2017 [facility] DATE CREATED AUTHOR AUTHOR'S ORGANIZ ATION 06/09/2020 [facility] DATE CREATED AUTHOR AUTHOR'S ORGANIZ ATION 06/10/2020 [facility] DATE CREATED AUTHOR AUTHOR'S ORGANIZ ATION 11/12/2021 [facility] DATE CREATED AUTHOR AUTHOR'S ORGANIZ ATION 08/26/2022 [facility] DATE CREATED AUTHOR AUTHOR'S ORGANIZ ATION [...] BE BASED ON THE PRIMARY CLINICAL RECORDS. [facility] [employer] provides no warranty or guarantee of the accuracy or completeness of information in this document.
[2023-07-31 11:08] LABS: SARS-CoV-2 Ag NEGATIVE (NEGATIVE)
[2023-07-31 15:45] LABS: SARS-CoV-2 NAA NOT DETECTED (NOT DETECTE)
== END 2023-07-31 10:24 | disposition home or self-care (01) ==
LOC: LAB 10:23
PROVIDERS: PCP Family Medicine; Visit Provider Family Medicine
DX: Z20.822 Contact with and (suspected) exposure to COVID-19 (principal); J01.90 Acute sinusitis, unspecified
CPT/HCPCS: 87635; 87811